=== PATIENT | female | born 1985 | race African-American/Black ===

== ENCOUNTER 2019-01-27 07:47 | Emergency (ER) | payer OTHER ==
[~2019-01-27] VITALS: Ht 170.2 cm; Wt 84.4 kg
[2019-01-27 08:11] VITALS: BP 143/89
[2019-01-27] MEDS ORDERED: BUTE12CR TP ×2 (08:27→08:45)
--- NOTE | 2019-01-27 08:27 | PHYS DOC ---
Adult General Chief Complaint Chief Complaint: SKIN PROBLEM HPI HPI Patient is a 33 year old female without medical problem who presents with complaints of athletic foot. Patient states she has a pruritic rash between her toes for almost one month and now has the same rash in her hands for the last 2 weeks. Patient states she used several pijd-awj-bampcgd medication without improvement of her condition. Review of Systems Review of Systems Constitutional: Denies fever or chills [] Eyes: Denies change in visual acuity, redness, or eye pain [] HENT: Denies nasal congestion or sore throat [] Respiratory: Denies cough or shortness of breath [] Cardiovascular: No additional information not addressed in HPI [] GI: Denies abdominal pain, nausea, vomiting, bloody stools or diarrhea [] : Denies dysuria or hematuria [] Musculoskeletal: Denies back pain or joint pain [] Integument: Reports rash Neurologic: Denies headache, focal weakness or sensory changes [] Endocrine: Denies polyuria or polydipsia [] All other systems were reviewed and found to be within normal limits, except as documented in this note. Allergies Allergies Allergies Coded Allergies Type Severity Reaction Last Updated Verified No Known Drug Allergies 01/27/19 No Physical Exam Physical Exam Constitutional: Well developed, well nourished, no distress, non-toxic appearance. [] HENT: Normocephalic, atraumatic. Eyes: PERRLA, EOMI, conjunctiva normal, no discharge. [] Neck: Normal range of motion, no tenderness, supple, no stridor. [] Cardiovascular:Heart rate regular rhythm, no murmur [] Lungs & Thorax: Bilateral breath sounds clear to auscultation [] Skin: Warm, dry pruritic rash between the toes of bilateral feet and fingers Extremities: No tenderness, no cyanosis, no clubbing, ROM intact, no edema. [] Neurologic: Alert and oriented X 3, no focal deficits noted. [] Psychologic: Affect normal, judgement normal, mood normal. [] Current Patient Data Vital Signs Vital Signs Date Time Temp Pulse Resp B/P (MAP) Pulse Ox O2 Delivery O2 Flow Rate FiO2 01/27/19 08:11 98.5 74 15 143/89 (107) 99 Room Air 98.5 EKG EKG [] Radiology/Procedures Radiology/Procedures [] Course & Med Decision Making Course & Med Decision Making Evaluation of patient in ER showed 33-year-old female patient with dermatophyte infection of feet and hands do not get better with pilj-ntk-ydlqxxu medication. Patient was advised to follow-up with her primary care physician for long time oral treatment. Prescription for antifungal ointment was given. I've spoken with the patient and/or caregivers. I've explained the patient's condition, diagnosis and treatment plan based on information available to me at this time. I've answered the patient's and/or caregivers questions and addressed any concerns. The patient and/or caregivers have a good understanding the patient's diagnosis, condition and treatment plan as can be expected at this point. Vital signs have been stabilized. The patient's condition is stable for discharge from the emergency department. The patient will pursue further outpatient evaluation with her primary care provider or other designated consulting physician as outlined in the discharge instructions. Patient and/or caregivers are agreeable to this plan of care and follow-up instructions have been explained in detail. The patient and/or caregivers have received these instructions in written format and expressed understanding of these discharge instructions. The patient and her caregivers are aware that if any significant change in condition or worsening of symptoms should prompt him to immediately return to this of the closest emergency department. If an emergent department is not readily available I would enc ourage him to call 911. Lino Disclaimer Lino Disclaimer This electronic medical record was generated, in whole or in part, using a voice recognition dictation system. Departure Departure Impression: Primary Impression: Athletes foot Disposition: 01 HOME, SELF-CARE (at 0817) Condition: STABLE Referrals: NO PCP (PCP) Patient Instructions: Athlete's Foot Additional Instructions: Follow-up with your primary care physician in 3-5 days Return to ER if not getting better Scripts Butenafine Hcl (LOTRIMIN ULTRA) 12 Gm Cream..g. 1 ESME TP BID for 28 Days, #30 GM 0 Refills Prov: ARDEN HURTADO MD 01/27/19 Problem Qualifiers Primary Impression: Athletes foot Laterality: bilateral Qualified Codes: B35.3 - Tinea pedis ARDEN HURTADO MD Jan 27, 2019 08:27
== END 2019-01-27 08:52 | disposition home or self-care (01) ==
LOC: ER 07:47
DX: B35.3 Tinea pedis (principal)
CPT/HCPCS: 99282

== ENCOUNTER → 2019-02-10 | Outpatient (CLI) | payer SELFPAY ==
[2019-01-27 08:11] VITALS: BP 143/89
[~2019-02-10] MED LIST: BUTE12CR TP
[2019-02-10 15:19] LABS: BASO # 0.1 x10^3/uL (0.0-0.2); BASO % 1 % (0-3); EOS # 0.3 x10^3/uL (0.0-0.7); EOS % 5 % (0-3); HEMATOCRIT 38.2 % (36.0-47.0); HEMOGLOBIN 12.8 g/dL (12.0-15.5); LYMPH # 2.3 x10^3/uL (1.0-4.8); LYMPH % 33 % (24-48); MEAN CORPUSCULAR HEMOGLOBIN 31 pg (25-35); MEAN CORPUSCULAR HGB CONC 34 g/dL (31-37); MEAN CORPUSCULAR VOLUME 92 fL (79-100); MONO # 0.6 x10^3/uL (0.0-1.1); MONO % 9 % (0-9); NEUT # 3.7 x10^3/uL (1.8-7.7); NEUT % 53 % (31-73); PLATELET COUNT 304 x10^3/uL (140-400); RED BLOOD COUNT 4.14 x10^6/uL (3.50-5.40); RED CELL DISTRIBUTION WIDTH 13.3 % (11.5-14.5)
[2019-02-10 15:28] LABS: ALBUMIN 3.5 g/dL (3.4-5.0); CALCIUM 8.8 mg/dL (8.5-10.1); CREATININE 0.8 mg/dL (0.6-1.0); POTASSIUM 3.9 mmol/L (3.5-5.1); TOTAL BILIRUBIN 0.4 mg/dL (0.2-1.0); TOTAL PROTEIN 7.1 g/dL (6.4-8.2)
[2019-02-10 15:39] LABS: CHOLESTEROL/HDL RATIO 2.5
[2019-02-11 02:08] LABS: HEMOGLOBIN A1C 5.5 % (4.8-5.6)
== END | disposition home or self-care (01) ==
LOC: LAB 14:35
PROVIDERS: ATTEND Family Medicine
DX: Z00.00 Encounter for general adult medical examination without abnormal findings (principal)
CPT/HCPCS: 36415; 80053; 80061; 83036; 84443; 85025

== ENCOUNTER 2019-07-02 19:35 | Emergency (ER) | payer OTHER ==
[~2019-07-02] VITALS: Ht 170.2 cm; Wt 81.0 kg
[2019-07-02] MEDS ORDERED: IV NORMAL SALINE 1000ML BAG 1,000 ML IV SCH (19:51)
--- NOTE | 2019-07-02 20:07 | PHYS DOC ---
Past Medical History Past Medical History: No Pertinent History Past Surgical History: No Surgical History Smoking Status: Never Smoker Alcohol Use: Occasionally Drug Use: None General Adult EDM: Chief Complaint: SHORTNESS OF BREATH HPI: HPI: Patient is a 33 year old female who presents with report of cough, fever and shortness of breath. Patient states that the cough and shortness of breath that been going on for the last few days and then today she had a fever for 101.1. She also complains of body aches and chills. She denies any vomiting or diarrhea. She states that symptoms are progressively getting worse. 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 [] Respiratory: Complains of cough and shortness of breath. [] Cardiovascular: Denies chest pain or edema. [] GI: Denies abdominal pain, nausea, vomiting, bloody stools or diarrhea. [] Neurologic: Denies headache, focal weakness or sensory changes. [] A complete 10 point review of systems has been reviewed and is otherwise negative. Heart Score: Risk Factors: Risk Factors: DM, Current or recent (<one month) smoker, HTN, HLP, family history of CAD, obesity. Risk Scores: Score 0 - 3: 2.5% MACE over next 6 weeks - Discharge Home Score 4 - 6: 20.3% MACE over next 6 weeks - Admit for Clinical Observation Score 7 - 10: 72.7% MACE over next 6 weeks - Early Invasive Strategies Current Medications: Current Medications Medications (Trade) Dose Ordered Sig/Rachel Start Time Stop Time Status Last Admin Dose Admin Sodium Chloride 1,000 ml @ 1,000 mls/hr Q1H 07/02/19 19:51 07/02/19 20:50 Allergies: Allergies: Allergies Coded Allergies Type Severity Reaction Last Updated Verified No Known Drug Allergies 01/27/19 No Physical Exam: PE: Constitutional: Well developed, well nourished, no acute distress, non-toxic appearance. [] HENT: Normocephalic, atraumatic, bilateral external ears normal, oropharynx moist, no oral exudates, nose normal. [] Eyes: PERRLA, EOMI, conjunctiva normal, no discharge. [] Neck: Normal range of motion, no tenderness, supple, no stridor. [] Cardiovascular: Regular rate and rhythm[] Lungs & Thorax: Bilateral breath sounds clear to auscultation [] Abdomen: Bowel sounds normal, soft, no tenderness. [] Back: No tenderness, no CVA tenderness. [] Extremities: No tenderness, no cyanosis, no clubbing, ROM intact, no edema. [] Neurologic: Alert and oriented X 3, no focal deficits noted. [] EKG: EKG: [] Radiology/Procedures: Radiology/Procedures: [] Impression: PROCEDURE: PORTABLE CHEST 1V PORTABLE CHEST 1V History: Cough, fever Comparison: None. Findings: Single view of the chest is submitted. There is no infiltrate, pneumothorax, or effusion. The pericardial cardiac silhouette is within normal limits in size. Impression: 1. There is no radiographic evidence of acute cardiopulmonary disease. Electronically signed by: Dada Schaefer MD (07/02/2019 10:20 PM) [facility] PROCEDURE: CT HEAD WO CONTRAST CT head without contrast PQRS statement: CT scans at this facility use dose reduction including either automated exposure control, iterative reconstructions, and /or weight based radiation dosing via mA and kV modification when appropriate to reduce radiation dose to as low as reasonably achievable. HISTORY: Headache. COMPARISON: CT head July 25, 2011. FINDINGS: No intracranial hemorrhage, mass, hydrocephalus, extra-axial fluid collections or infarction. The ventricles are somewhat slitlike although this is similar to the prior study from 2011. Partial opacification ethmoid sinuses and mucosal thickening of the maxillary and sphenoid sinuses. Orbits, mastoids and bones are unremarkable. IMPRESSION: 1. No acute intracranial CT abnormality. Stable CT of the brain. 2. Paranasal sinus disease with mucosal thickening and partial opacification. Electronically signed by: Shen Schultz MD (07/02/2019 11:31 PM) [id number] Course & Med Decision Making: Course & Med Decision Making Pertinent Labs and Imaging studies reviewed. (See chart for details) [] Dragon Disclaimer: Dragon Disclaimer: This electronic medical record was generated, in whole or in part, using a voice recognition dictation system. COVID-19 Patient Risks: Age 65 or older: No Sign of co-morbidity: No Exp to person + for COVID: Yes Exp to PUI: Yes Travel from affected area: No Lower respiratory symptoms: Yes Fever: Yes Other: No PPE Use: Full PPE with N95 mask or PAPR: Yes Departure Departure Impression: Primary Impression: Suspected COVID-19 virus infection Additional Impression: Upper respiratory infection Qualified Codes: J06.9 - Acute upper respiratory infection, unspecified Disposition: HOME, SELF-CARE Condition: STABLE Referrals: ARMANDO PAYNE DO (PCP) Patient Instructions: Form - Excuse from Work, School, or Physical Activity, Upper Respiratory Infection, Adult Scripts Azithromycin (ZITHROMAX) 250 Mg Tablet 1 PKG PO UD, #6 TAB Prov: GEORGI TIM Jr. DO 07/02/19 GEORGI TIM Jr. DO Jul 02, 2019 20:07
[2019-07-02 20:10] VITALS: BP 129/78
[2019-07-02 20:30] LABS: BASO # 0.1 x10^3/uL (0.0-0.2); BASO % 1 % (0-3); EOS # 0.3 x10^3/uL (0.0-0.7); EOS % 5 % (0-3); HEMATOCRIT 38.7 % (36.0-47.0); HEMOGLOBIN 13.1 g/dL (12.0-15.5); LYMPH # 2.2 x10^3/uL (1.0-4.8); LYMPH % 35 % (24-48); MEAN CORPUSCULAR HEMOGLOBIN 31 pg (25-35); MEAN CORPUSCULAR HGB CONC 34 g/dL (31-37); MEAN CORPUSCULAR VOLUME 91 fL (79-100); MONO # 0.6 x10^3/uL (0.0-1.1); MONO % 10 % (0-9); NEUT % 49 % (31-73); PLATELET COUNT 315 x10^3/uL (140-400); RED BLOOD COUNT 4.24 x10^6/uL (3.50-5.40); RED CELL DISTRIBUTION WIDTH 13.6 % (11.5-14.5); WHITE BLOOD COUNT 6.2 x10^3/uL (4.0-11.0)
[2019-07-02 20:38] LABS: INFLUENZA A PATIENT NEGATIVE (NEGATIVE); INFLUENZA B PATIENT NEGATIVE (NEGATIVE)
[2019-07-02 20:44] LABS: ALBUMIN 3.6 g/dL (3.4-5.0); ALBUMIN/GLOBULIN RATIO 1.1 (1.0-1.7); CALCIUM 8.9 mg/dL (8.5-10.1); GFR 77.3; POTASSIUM 3.5 mmol/L (3.5-5.1); TOTAL BILIRUBIN 0.7 mg/dL (0.2-1.0)
--- NOTE | 2019-07-02 22:23 | RAD ---
PORTABLE CHEST 1V History: Cough, fever Comparison: None. Findings: Single view of the chest is submitted. There is no infiltrate, pneumothorax, or effusion. The pericardial cardiac silhouette is within normal limits in size. Impression: 1. There is no radiographic evidence of acute cardiopulmonary disease. Electronically signed by: Dada Schaefer MD (07/02/2019 10:20 PM) [facility]
[2019-07-02] MEDS ORDERED: AZIT250T PO (22:30)
--- NOTE | 2019-07-02 23:33 | RAD ---
CT head without contrast PQRS statement: CT scans at this facility use dose reduction including either automated exposure control, iterative reconstructions, and /or weight based radiation dosing via mA and kV modification when appropriate to reduce radiation dose to as low as reasonably achievable. HISTORY: Headache. COMPARISON: CT head July 25, 2011. FINDINGS: No intracranial hemorrhage, mass, hydrocephalus, extra-axial fluid collections or infarction. The ventricles are somewhat slitlike although this is similar to the prior study from 2012. Partial opacification ethmoid sinuses and mucosal thickening of the maxillary and sphenoid sinuses. Orbits, mastoids and bones are unremarkable. IMPRESSION: 1. No acute intracranial CT abnormality. Stable CT of the brain. 2. Paranasal sinus disease with mucosal thickening and partial opacification. Electronically signed by: Shen Schultz MD (07/02/2019 11:31 PM) [id number]
== END 2019-07-03 00:10 | disposition home or self-care (01) ==
LOC: ER 19:35
DX: Z03.818 Encounter for observation for suspected exposure to other biological agents ruled out (principal); J06.9 Acute upper respiratory infection, unspecified; R51 Headache
CPT/HCPCS: 36415; 70450; 71045; 80053; 83605; 84702; 85025; 87040; 87070; 87635; 87804; 87880; 99285; J7030

== ENCOUNTER → 2020-01-20 | Outpatient (CLI) | payer OTHER ==
[~2020-01-20] MED LIST changes: +AZIT250T PO
--- NOTE | 2020-01-21 07:19 | RAD ---
Examination: 1. Digital bilateral diagnostic mammogram. 2. Limited right breast ultrasound. INDICATION: 34-year-old woman with a palpable lump in the medial right breast. She is referred with a history of bilateral breast lumps but denies awareness of any lumps in the left breast by either herself or her referring physician. It is just the right breast she is concerned about. COMPARISON: None. This will be a baseline. TECHNIQUE: CC and MLO views of both breasts were obtained with 2-D and 3-D technique and reviewed with computer-aided detection. The area of palpable concern as reported by the patient was marked with a triangular marker in the lower inner right breast. Targeted ultrasound of this area was subsequently pursued. FINDINGS: Bilateral mammogram: Heterogeneously dense breast parenchyma. Negative left mammogram. Right breast shows a partially imaged circumscribed isodense mass in the posterior inner right breast at least 1 cm in diameter that corresponds with the area of palpable concern as marked at the skin surface with a triangular marker on the cc view. Limited right breast ultrasound: Targeted ultrasound of the area of palpable concern identifies an oval, parallel orientation superficial 1 cm mass at the right 5:00 position 5 cm from the nipple that correlates with the mammographic and clinical findings. It has slightly indistinct margins. IMPRESSION: Suspicious 1 cm mass in the lower inner right breast, correlating with the area of clinical concern. There is a low index of suspicion for malignancy. BI-RADS Category 4 Findings suspicious for malignancy Biopsy recommended Discussed with patient. Findings and recommendations telephoned to the patient's referring provider at 10:58 AM on 01/20/2020 where Angie nurse for patient's primary care provider (Shawna Haney) took the message on her behalf. Electronically signed by: Yazan Sam MD (01/21/2020 7:16 AM) [id number]
== END ==
LOC: MAMMO 08:27
PROVIDERS: ATTEND Nurse Practitioner
DX: R92.2 Inconclusive mammogram (principal); N63.14 Unspecified lump in the right breast, lower inner quadrant
CPT/HCPCS: 76641; 77066; G0279; 77062

== ENCOUNTER → 2020-02-09 | Outpatient (CLI) | payer OTHER ==
--- NOTE | 2020-02-10 10:11 | RAD ---
Examination: 1. Ultrasound-guided right breast core needle biopsy. 2. Right postprocedure mammogram. INDICATION: 34-year-old woman with a palpable lump in the lower inner right breast recommended for biopsy. COMPARISON: Right mammogram and breast ultrasound of 01/20/2020. TECHNIQUE AND FINDINGS: Informed consent was obtained and an appropriate procedural pause was observed. Standard sterile technique, ultrasound guidance and local anesthesia was utilized in directing a 14-gauge core needle biopsy into the 1 cm long mass in the right breast at the 5:00 position and 2 core biopsy samples were obtained. An S-shaped biopsy marker was subsequently deployed. Puncture site was dressed and a post procedure mammogram was obtained. The postprocedure mammogram showed satisfactory deployment of the S-shaped biopsy marker in the mass in the lower inner posterior right breast. No postbiopsy hematoma. Patient tolerated the procedure without incident. Post procedure instructions reviewed and patient was discharged in stable condition to follow up with her referring physician. IMPRESSION: Successful right breast ultrasound-guided core needle biopsy of a palpable mass in the lower inner quadrant. Pathology results are pending. An addendum will be issued once pathology results become available. Electronically signed by: Yazan Sam MD (02/10/2020 10:08 AM) [id number]
--- NOTE | 2020-02-10 18:55 | PATHOLOGY ---
[facility] Accession Number: [id number] . 01 Material submitted: . breast - RIGHT BREAST TISSUE, 5:00, 5CMFN. Modifiers: right, 5:00 . 01 Clinical history: . ABNORMAL RIGHT MAMMOGRAM . 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 ([facility] 02/10/2020) [facility] 02/10/2020 1333 Local . 02 Comment: There is no evidence of malignancy. ([facility] 02/10/2020) . 02 Electronically signed: . Denton Martins MD, Pathologist NPI- [id number] . 01 Gross description: . The specimen is received in formalin, labeled "Gi Juárez, right breast 5:00 5 cm from nipple". Received are two needle cores of fibrofatty tissue measuring 1.2 x 0.4 x 0.2 cm in aggregate dimensions. The specimen is submitted entirely in cassettes A1 and A2. The cold ischemic time is 1 minute. The total formalin fixation time is 9 hours and 47 minutes. ([facility]; 02/09/2020) [facility] 02/09/2020 1739 Local . 02 Pathologist provided ICD-10: D24.1 . 02 CPT . 194173 Specimen Comment: A courtesy copy of this report has been sent to [phone], [phone] Specimen Comment: [id number] Specimen Comment: Report sent to / DR PAYNE Specimen Comment: A duplicate report has been generated due to demographic updates. Performed at: [address], [place], [place] [id number] MD Montana Lawson MD Phone: [phone] Performed at: 02 [facility] [address], [place] [id number] MD Denton Martins MD Phone: [phone]
== END | disposition home or self-care (01) ==
LOC: US 13:13
PROVIDERS: ATTEND Family Medicine
DX: R92.8 Other abnormal and inconclusive findings on diagnostic imaging of breast (principal); D24.1 Benign neoplasm of right breast; Z79.899 Other long term (current) drug therapy; Z72.89 Other problems related to lifestyle; Z98.890 Other specified postprocedural states
CPT/HCPCS: 19083; 77065; 88305; C1713; 19081; 76942